=== PATIENT | male | born 1975 | race Caucasian/White ===

== ENCOUNTER 2023-10-12 06:14 | Day surgery (SDC) | payer BC ==
[2023-10-09 15:33] VITALS: BMI 37.3
[2023-10-12] MEDS ORDERED: MIDAZOLAM HCL 2 MG/2 ML SINGLE DOSE VIAL ONE (07:16)
[2023-10-12] MEDS ORDERED: ROPIVACAINE HCL 0.5% 30ML VIAL ONE (07:17)
[2023-10-12] MEDS ORDERED: DEXAMETHASONE SOD PHOSPHATE 4 MG/1 ML VIAL ONE (07:30)
[2023-10-12] MEDS ORDERED: BUPIVACAINE HCL/PF 0.25% (2.5MG/ML) 10 ML VIAL ONE (07:30)
[2023-10-12] MEDS ORDERED: LIDOCAINE HCL 2% (20ML MULTI-DOSE VIAL) ONE (07:31)
[2023-10-12] MEDS ORDERED: PROPOFOL 20 ML ONE ×10 (07:45→10:02)
[2023-10-12 11:09] VITALS: TEMP 97.3
[2023-10-12 11:44] VITALS: BP 119/76; PULSE 65; RESP 20
== END 2023-10-12 11:50 | disposition home or self-care (01) ==
LOC: FASU 06:14
PROVIDERS: ATTEND Podiatrist Foot & Ankle Surgery
PROC: 0QBM0ZZ Excision of Left Tarsal, Open Approach (ICD-10-PCS; 2023-10-12)
PROC: 0LNT0ZZ Release Left Ankle Tendon, Open Approach (ICD-10-PCS; 2023-10-12)
PROC: 0LUP07Z Supplement Left Lower Leg Tendon with Autologous Tissue Substitute, Open Approach (ICD-10-PCS; principal; 2023-10-12 08:14)
DX: M76.62 Achilles tendinitis, left leg (principal); M95.8 Other specified acquired deformities of musculoskeletal system; S86.012A Strain of left Achilles tendon, initial encounter; X58.XXXA Exposure to other specified factors, initial encounter; Y93.9 Activity, unspecified; Y92.9 Unspecified place or not applicable
CPT/HCPCS: 27654; 27680; 27691; 28120; C1713; 73610-TC-LT-FY; 73630-TC-LT; 88304-TC; 94760

== ENCOUNTER 2024-05-16 04:07 | Day surgery (SDC) | payer BC ==
[2024-05-15 17:44] VITALS: BMI 37.8
[2024-05-16] MEDS ORDERED: LIDOCAINE HCL 2% (20ML MULTI-DOSE VIAL) ONE (10:00)
[2024-05-16] MEDS ORDERED: LIDOCAINE 1%/EPI 1:100000 (20 ML MULTI DOSE VIAL) ONE (10:01)
[2024-05-16] MEDS ORDERED: MIDAZOLAM HCL 2 MG/2 ML SINGLE DOSE VIAL ONE ×3 (10:07→10:44)
[2024-05-16] MEDS ORDERED: PROPOFOL 20 ML ONE ×2 (10:07→12:32)
[2024-05-16] MEDS ORDERED: ACETAMINOPHEN INJECTION 100 ML ONE (10:17)
[2024-05-16] MEDS ORDERED: DEXAMETHASONE SOD PHOSPHATE 10 MG/1 ML VIAL ONE (10:17)
[2024-05-16] MEDS ORDERED: BUPIVACAINE HCL/PF 0.5% (5MG/ML) 10 ML VIAL ONE ×2 (10:17→10:38)
[2024-05-16] MEDS ORDERED: SUCCINYLCHOLINE CHLORIDE 200 MG/10 ML SYRINGE ONE (10:59)
[2024-05-16] MEDS ORDERED: BUPIVACAINE 0.5% /EPI 1:200,000 10 ML VIAL IJ ONE (11:00)
[2024-05-16] MEDS ORDERED: ceFAZolin SODIUM 1 GM VIAL ONE ×3 (11:08)
[2024-05-16] MEDS: ceFAZolin SODIUM 1 GM VIAL IVPB ONE (11:10)
[2024-05-16] MEDS ORDERED: KETOROLAC TROMETHAMINE 30 MG/1 ML VIAL ONE (11:30)
[2024-05-16] MEDS ORDERED: DEXAMETHASONE SOD PHOSPHATE 4 MG/1 ML VIAL ONE (11:30)
[2024-05-16] MEDS ORDERED: ONDANSETRON 4 MG/2 ML VIAL ONE (11:30)
[2024-05-16] MEDS ORDERED: GLYCOPYRROLATE 0.2 MG/1 ML VIAL ONE (12:14)
[2024-05-16] MEDS ORDERED: SODIUM CHLORIDE 0.9% P/F 10 ML VIAL IJ ONE (12:23)
[2024-05-16] MEDS ORDERED: oxyCODONE HCL 5 MG TABLET PO PRN (13:10)
[2024-05-16] MEDS ORDERED: ACETAMINOPHEN 325 MG TABLET (FP) PO PRN (13:10)
[2024-05-16] MEDS ORDERED: ONDANSETRON 4 MG/2 ML VIAL IVPUSH PRN (13:10)
[2024-05-16] MEDS ORDERED: LACTATED RINGERS SOLUTION 1,000 ML IV SCH (13:15)
[2024-05-16 14:51] VITALS: RESP 18
[2024-05-16 15:16] VITALS: BP 128/77; PULSE 70; TEMP 97.5
== END 2024-05-16 16:00 | disposition home or self-care (01) ==
LOC: JASU-SURG 04:07
PROVIDERS: ATTEND Podiatrist Foot & Ankle Surgery
PROC: 0LXV0ZZ Transfer Right Foot Tendon, Open Approach (ICD-10-PCS; principal; 2024-05-16 10:00)
DX: M76.61 Achilles tendinitis, right leg (principal); M77.31 Calcaneal spur, right foot
CPT/HCPCS: 27654; 27691; 28120; C1713; 73630-TC-RT-FY; 76000-TC-FY; 88304-TC; 88311-TC; 94760; 97116-GP; C1769; J0131; J1100